=== PATIENT | male | born 1965 | race Caucasian/White ===

== ENCOUNTER 2021-09-30 05:33 | Outpatient (RCR) | payer MEDICARE, OTHER ==
[~2021-09-30] VITALS: Ht 167.4 cm; Wt 114.2 kg
[~2021-09-30 05:33] MED LIST: ACID1TAB PO; ASP325T PO; ATEN100T45 PO; ATEN100T88 PO; CEFD300C3 PO; COUMADIN; CYCL10TA9 PO; DCS100C PO; DIAZ10TA3 PO; DICL25CA4 PO; DULO60CA6 PO; GABA600T2 PO; GBPN600T PO; HYDR-2890 PO; HYDR-3720 PO; HYDR118S10 PO; LD5PT TOP; METH10TA5; METHIMAZOLE PO; METR500T PO; MNTL10T PO; MS15TCR PO; MULT1CAP27 PO; NAPR-243 PO; NAUSEA MED; OMEP-10 PO; OXYC-12; OXYC-309 PO; OXYC-465 PO; OXYC1TAB95 PO; POLY119P PO; PRD20T; PRM25T PO; SENN1TAB76 PO; THYROID MED; VALA500T4 PO; VITA400T9 PO; WRF5T PO
[2021-09-30] MEDS ORDERED: ATOR80TA76 PO (11:50)
[2021-09-30] MEDS ORDERED: ACYC-112 PO (11:50)
[2021-09-30] MEDS ORDERED: ATEN100T PO (11:50)
[2021-09-30] MEDS ORDERED: MONT-40 PO (11:50)
[2021-09-30] MEDS ORDERED: CARB200T6 PO (11:50)
[2021-09-30] MEDS ORDERED: VENL100T2 PO (11:50)
[2021-09-30] MEDS ORDERED: GABA300S2 PO (11:50)
[2021-09-30] MEDS ORDERED: INSU100V6 SQ (11:50)
[2021-09-30] MEDS ORDERED: ENAL10TA16 PO (11:50)
[2021-09-30] MEDS ORDERED: CETI10TA17 PO (11:50)
[2021-09-30] MEDS ORDERED: SEMA1PEN3 SQ (11:50)
== END 2021-09-30 12:10 | disposition home or self-care (01) ==
LOC: PREOP 05:33 → EDSTATUS 10:30 → PREOP 12:10
PROVIDERS: ATTEND Otolaryngology Otolaryngology/Facial Plastic Surgery
DX: Z01.818 Encounter for other preprocedural examination (principal)

== ENCOUNTER 2021-10-07 07:31 | Day surgery (SDC) | payer MEDICARE, OTHER ==
[2021-10-07] VITALS (10 sets, daily range): BP systolic 88–158; BP diastolic 42–96
[~2021-10-07 07:31] MED LIST changes: +ACYC-112 PO; +ATEN100T PO; +ATOR80TA76 PO; +CARB200T6 PO; +CETI10TA17 PO; +ENAL10TA16 PO; +GABA300S2 PO; +INSU100V6 SQ; +MONT-40 PO; +SEMA1PEN3 SQ; +VENL100T2 PO
[2021-10-07] MEDS ORDERED: BSS 15 ML ONE (07:44)
[2021-10-07] MEDS ORDERED: COCAINE HCL 4% 2 ML SYR ONE (07:44)
[2021-10-07] MEDS ORDERED: LIDOCAINE/EPI 1%-1:200,000 (XYLOCAINE) 30 ML VIAL ONE (07:44)
[2021-10-07] MEDS ORDERED: PHENYLEPHRINE 0.5% NASAL SPR (NEO-SYNEPHRINE) REG ONE (07:44)
[2021-10-07] MEDS ORDERED: LACTATED RINGERS 1,000 ML IV PRN (07:45)
[2021-10-07 08:19] LABS: BASOPHILS % (AUTO) 0 % (0-10); EOSINOPHILS % (AUTO) 0 % (0-10); HEMATOCRIT 48 % (40-54); HEMOGLOBIN 15.8 g/dL (13.3-17.7); LYMPHOCYTES # (AUTO) 1.9 10^3/uL (1.0-4.0); LYMPHOCYTES % (AUTO) 23 % (12-44); MEAN CORPUSCULAR HEMOGLOBIN 29 pg (25-34); MEAN CORPUSCULAR HGB CONC 33 g/dL (32-36); MEAN CORPUSCULAR VOLUME 89 fL (80-99); MEAN PLATELET VOLUME 9.6 fL (9.0-12.2); MONOCYTES # (AUTO) 0.6 10^3/uL (0.0-1.0); MONOCYTES % (AUTO) 7 % (0-12); NEUTROPHILS # (AUTO) 5.9 10^3/uL (1.8-7.8); NEUTROPHILS % (AUTO) 70 % (42-75); PLATELET COUNT 202 10^3/uL (130-400); WHITE BLOOD COUNT 8.5 10^3/uL (4.3-11.0)
[2021-10-07] MEDS ORDERED: LIDOCAINE PF 2% 5 ML (XYLOCAINE) VIAL ONE (08:22)
[2021-10-07] MEDS ORDERED: fentaNYL INJ 100 MCG/2 ML AMP ONE ×2 (08:22→09:59)
[2021-10-07] MEDS ORDERED: MIDAZOLAM 2 MG/2 ML (VERSED) VIAL ONE (08:22)
[2021-10-07] MEDS ORDERED: ROCURONIUM 10 MG/ML 5 ML SYRINGE IV ONE (08:22)
[2021-10-07] MEDS ORDERED: proPOfol 200 MG/20 ML (DIPRIVAN) VIAL IV ONE (08:22)
[2021-10-07 08:37] LABS: CALCIUM 8.8 MG/DL (8.5-10.1); CREATININE SERUM 0.75 MG/DL (0.60-1.30); POTASSIUM 4.1 MMOL/L (3.6-5.0)
--- NOTE | 2021-10-07 08:52 | Progress Note-Pre Operative ---
Pre-Operative Progress Note H&P Reviewed The H&P was reviewed, patient examined and no changes noted. Date Seen by Provider: Oct 07, 2021 Time Seen by Provider: 08: Date H&P Reviewed: Oct 07, 2021 Time H&P Reviewed: 08:30 Pre-Operative Diagnosis: Bilat Chronic/Rec Sinusitis, Bilat Hyper of Inf Turbs ROX BETTENCOURT MD Oct 07, 2021 08:52
--- NOTE | 2021-10-07 08:53 | Progress Note-Post Operative ---
Post-Operative Progess Note Surgeon (s)/School Physical Therapist (s) Surgeon ROX BETTENCOURT MD School Physical Therapist n/a Pre-Operative Diagnosis Bilat Chronic/Rec Sinusitis, Bilat Hyper of Inf Turbs Post-Operative Diagnosis same Post-Op Procedure Note Date of Procedure: Oct 07, 2021 Name of Procedure Performed: Bilat Revision ESS, Bilat Red of Inf Turbs Description & Findings Description and Findings: n/a Anesthesia Type get Estimated Blood Loss minimal Packing none. Specimen(s) collected/removed Bilat Chronic Sinus disease ROX BETTENCOURT MD Oct 07, 2021 08:53
[2021-10-07] MEDS ORDERED: D5 1/2 NS W/KCL 20 MEQ/L 1,000 ML IV SCH (09:00)
[2021-10-07] MEDS ORDERED: PROMETHAZINE INJ 25 MG/ML (PHENERGAN) AMP IVP PRN (09:00)
[2021-10-07] MEDS ORDERED: ONDANSETRON 4 MG/2 ML (SDV) Z0FRAN IVP PRN (10:00)
[2021-10-07] MEDS ORDERED: HYDROmorphone 2 MG/ML VIAL (DILAUDID) IV ONE (10:00)
[2021-10-07] MEDS ORDERED: fentaNYL INJ 100 MCG/2 ML AMP IVP ONE (10:00)
--- NOTE | 2021-10-07 10:00 | Anesthesia-General Post-Op ---
General Patient Condition Mental Status/LOC: Same as Preop Cardiovascular: Satisfactory Nausea/Vomiting: Absent Respiratory: Satisfactory Pain: Controlled Complications: Absent Post Op Complications Complications None Follow Up Care/Instructions Patient Instructions None needed. Anesthesia/Patient Condition Patient Condition Patient is doing well, no complaints, stable vital signs, no apparent adverse anesthesia problems. No complications reported per nursing. DAVID ACEVEDO CRNA Oct 07, 2021 10:00
[2021-10-07] MEDS ORDERED: LEVO500T81 PO (10:55)
[2021-10-07] MEDS ORDERED: ACHD5005 PO (10:55)
== END 2021-10-07 11:55 | disposition home or self-care (01) ==
LOC: SDC 07:31
PROVIDERS: ATTEND Otolaryngology Otolaryngology/Facial Plastic Surgery
DX: J32.9 Chronic sinusitis, unspecified (principal); J34.3 Hypertrophy of nasal turbinates; R09.81 Nasal congestion; J30.9 Allergic rhinitis, unspecified; Z79.899 Other long term (current) drug therapy
CPT/HCPCS: 36415; 80048; 82947; 85025; 87081; 87636; 88305; 93005

== ENCOUNTER 2023-04-02 05:30 | Outpatient (CLI) | payer OTHER ==
[~2023-04-02] VITALS: Ht 167.7 cm; Wt 120.5 kg
[~2023-04-02 05:30] MED LIST changes: +ACHD5005 PO; -ENAL10TA16 PO; +ENLP10T PO; -GABA300S2 PO; +GABA300S3 PO; +LEVO-55 PO
[2023-04-02] MEDS ORDERED: FLUT15.845 NS (15:15)
[2023-04-02] MEDS ORDERED: DOCU-26 PO (15:15)
== END 2023-04-02 15:45 | disposition home or self-care (01) ==
LOC: PREOP 05:30
PROVIDERS: ATTEND Otolaryngology Otolaryngology/Facial Plastic Surgery
DX: Z01.818 Encounter for other preprocedural examination (principal)

== ENCOUNTER 2023-04-06 06:24 | Day surgery (SDC) | payer OTHER ==
[2023-04-06] VITALS (8 sets, daily range): BP systolic 108–140; BP diastolic 69–88
[~2023-04-06] VITALS: Ht 167.7 cm; Wt 121.0 kg
[~2023-04-06 06:24] MED LIST changes: +DOCU-26 PO; +FLUT15.845 NS
--- NOTE | 2023-04-06 06:57 | Progress Note-Pre Operative ---
Pre-Operative Progress Note Date of Available H&P: Apr 06, 2023 Date H&P Reviewed: Apr 06, 2023 Time H&P Reviewed: 06:30 History & Physical: H&P Reviewed, Patient Examed, No changes noted Changes from last HP none Pre-Operative Diagnosis: Chornic Right [place] ROX BETTENCOURT MD Apr 06, 2023 06:57
--- NOTE | 2023-04-06 06:58 | Progress Note-Post Operative ---
Post-Operative Progess Note Surgeon (s)/Cylinder Die Machine Helper (s) Surgeon ROX BETTENCOURT MD Cylinder Die Machine Helper n/a Pre-Operative Diagnosis Chornic Right [place] Post-Operative Diagnosis same Post-Op Procedure Note Date of Procedure: Apr 06, 2023 Name of Procedure Performed: Right Myringotom ywiht T-Tube Description & Findings Description and Findings: n/a Anesthesia Type lma Estimated Blood Loss minimal Packing none. Specimen(s) collected/removed none ROX BETTENCOURT MD Apr 06, 2023 06:58
[2023-04-06] MEDS ORDERED: ACETAMINOPHEN 325 MG/10.15 ML ORAL SOLN UDC PO PRN (07:00)
[2023-04-06] MEDS ORDERED: dexAMETHasone INJ 10 MG/ML 1 ML VIAL ONE (07:18)
[2023-04-06] MEDS ORDERED: ONDANSETRON INJECTION 4 MG/2 ML (SDV) ONE (07:18)
[2023-04-06] MEDS ORDERED: fentaNYL INJECTION 100 MCG/2 ML VIAL ONE (07:18)
[2023-04-06] MEDS ORDERED: MIDAZOLAM INJ 2 MG/2 ML VIAL ONE (07:18)
[2023-04-06] MEDS ORDERED: proPOfol INJECTION 200 MG/20 ML VIAL IV ONE (07:18)
[2023-04-06] MEDS ORDERED: LIDOCAINE PF 2% 5 ML VIAL ONE (07:18)
[2023-04-06] MEDS ORDERED: SEVOFLURANE (ULTANE) 15 ML INHAL SOLN ONE (07:18)
--- NOTE | 2023-04-06 07:44 | Anesthesia-General Post-Op ---
General Patient Condition Mental Status/LOC: Same as Preop Cardiovascular: Satisfactory Nausea/Vomiting: Absent Respiratory: Satisfactory Pain: Controlled Complications: Absent Post Op Complications Complications None Follow Up Care/Instructions Patient Instructions None needed. Anesthesia/Patient Condition Patient Condition Patient is doing well, no complaints, stable vital signs, no apparent adverse anesthesia problems. No complications reported per nursing. D/C home per [facility] [place] Criteria: Yes SHADE CORTES CRNA Apr 06, 2023 07:44
[2023-04-06] MEDS ORDERED: HYDROmorphone INJECTION 2 MG/ML VIAL IV ONE (07:45)
[2023-04-06] MEDS ORDERED: ONDANSETRON INJECTION 4 MG/2 ML (SDV) IVP PRN (07:45)
[2023-04-06] MEDS ORDERED: LACTATED RINGERS 1,000 ML 1,000 ML IV PRN (08:00)
== END 2023-04-06 09:10 | disposition home or self-care (01) ==
LOC: SDC 06:24
PROVIDERS: ATTEND Otolaryngology Otolaryngology/Facial Plastic Surgery
DX: H65.21 Chronic serous otitis media, right ear (principal); E66.01 Morbid (severe) obesity due to excess calories; H90.2 Conductive hearing loss, unspecified; J32.1 Chronic frontal sinusitis; F17.210 Nicotine dependence, cigarettes, uncomplicated; Z68.41 Body mass index [BMI] 40.0-44.9, adult
CPT/HCPCS: 87081